=== PATIENT | male | born 1940 | race Caucasian/White ===

== ENCOUNTER 2018-06-19 06:03 | Inpatient (IN) ==
--- NOTE | 2018-06-13 08:28 | EKG Report ---
Test Performed on : 06/13/2018 08:04:15 AM Test Reason : PAT Blood Pressure : / mmHG Vent. Rate : 088 BPM Atrial Rate : 088 BPM P-R Int : 136 ms QRS Dur : 088 ms QT Int : 344 ms P-R-T Axes : 066 -28 059 degrees QTc Int : 416 ms Sinus rhythm. with occasional premature ventricular complexes. Nonspecific ST abnormality Abnormal ECG No previous ECGs available Confirmed by Radha LINDER, Alfredo Alexander ([id number]) on 06/13/2018 8:43:04 AM
[2018-06-13 09:16] LABS: URINE SOURCE CLEAN CATCH
[2018-06-13 09:19] LABS: BASO# 0.05 X1000 (0.0-0.2); BASO% 0.7 % (0.0-0.8); EOS# 0.22 X1000 (0.0-0.7); EOS% 3.1 % (0.0-10.0); HEMATOCRIT 45.5 % (42.0-52.0); HEMOGLOBIN 15.2 g/dL (14.0-18.0); LYMPH# 1.93 X1000 (1.2-3.4); LYMPH% 27.1 % (20.5-51.1); MCH 30.1 PG (27-31); MCHC 33.4 g/dL (33-37); MCV 90.1 FL (81-99); MONO# 0.45 X1000 (0.11-0.59); MONO% 6.3 % (1.7-9.3); MPV 9.3 FL (7.4-10.4); NEUT# 4.48 X1000 (1.4-6.5); NEUT% 62.8 % (42.2-75.2); PLT 309 X1000 (130-400); RBC 5.05 XMIL (4.7-6.1); RDW 13.4 % (11.5-14.5); WBC 7.13 X1000 (4.8-10.8)
[2018-06-13 09:28] LABS: BILIRUBIN URINE NEGATIVE (NEGATIVE); BLOOD URINE NEGATIVE (NEGATIVE); COLOR YELLOW; GLUCOSE URINE NEGATIVE (NEGATIVE); KETONE URINE NEGATIVE (NEGATIVE); LEUKOCYTES URINE NEGATIVE (NEGATIVE); NITRITE URINE NEGATIVE (NEGATIVE); PH URINE 6.5; PROTEIN URINE TRACE mg/dL (NEGATIVE); SP GRAVITY URINE 1.024; TURBIDITY URINE CLEAR (CLEAR); UROBILINOGEN URINE NORMAL (NORMAL)
[2018-06-13 09:31] LABS: INR 0.96; PROTIME 13.5 Seconds (11.0-16.0); UR EPITHELIAL CELLS <10 /HPF (<10); URINE BACTERIA NEGATIVE /HPF; URINE RBC <10 /HPF (<10); URINE WBC <10 /HPF (<10)
[2018-06-13 09:32] LABS: PTT 30.6 Seconds (22.3-41.8)
[2018-06-13 09:57] LABS: AGAP 11; BUN 15 mg/dL (8-22); CALCIUM 9.6 mg/dL (8.8-10.2); CHLORIDE 103 mmol/L (98-107); COSMO 286; CREATININE 1.1 mg/dL (0.7-1.2); ESTIMATED GFR > 60; GLUCOSE 168 mg/dL (70-104); POTASSIUM 4.8 mmol/L (3.5-5.1); SODIUM 141 mmol/L (136-145); TCO2 27 mmol/L (25-35)
[2018-06-19] MEDS ORDERED: PEPCID ONE (06:24)
[2018-06-19] MEDS ORDERED: REGLAN ONE (06:24)
[2018-06-19] MEDS ORDERED: COLACE ONE (06:24)
[2018-06-19] MEDS ORDERED: CELEBREX ONE (06:25)
[2018-06-19] MEDS ORDERED: LYRICA ONE (06:25)
[2018-06-19] MEDS ORDERED: KEFZOL 1 GM/D5W 2 GM/100 ML IVPB ONE (06:25)
[2018-06-19] MEDS ORDERED: LR 1,000 ML ONE (06:25)
[2018-06-19] MEDS ORDERED: DIPRIVAN 1% ONE ×2 (06:59→10:12)
[2018-06-19] MEDS ORDERED: STERILE WATER INJ. ONE (07:04)
[2018-06-19] MEDS ORDERED: NORCURON ONE (07:04)
[2018-06-19] MEDS ORDERED: SUFENTA ONE (07:10)
[2018-06-19] MEDS ORDERED: QUELICIN (DOSE) ONE (07:13)
[2018-06-19] MEDS ORDERED: EXPAREL 1.3% ONE (07:57)
[2018-06-19] MEDS ORDERED: CYKLOKAPRON 1,000 MG/NS 1,000 MG/100 ML IVPB ONE (07:57)
[2018-06-19] MEDS ORDERED: TORADOL ONE (07:57)
[2018-06-19] MEDS ORDERED: SODIUM CHLORIDE 0.9% ONE (07:57)
[2018-06-19] MEDS ORDERED: NEOSPORIN G.U. IRRIGANT ONE (07:57)
[2018-06-19] MEDS ORDERED: DURAMORPH ONE (07:57)
[2018-06-19] MEDS ORDERED: SENSORCAINE-MPF 0.5%/EPI 1:200,000 ONE (07:57)
[2018-06-19] MEDS ORDERED: OFIRMEV 1000 MG/ISOTONIC SOLN 1,000 MG/100 ML BOTTLE ONE (09:43)
[2018-06-19] MEDS ORDERED: NEO-SYNEPHRINE ONE (09:51)
[2018-06-19] MEDS ORDERED: DECADRON ONE (09:52)
[2018-06-19] MEDS ORDERED: ZOFRAN ONE (09:52)
[2018-06-19] MEDS ORDERED: XYLOCAINE-MPF 2% ONE (10:13)
[2018-06-19] MEDS ORDERED: NEOSTIGMINE ONE (10:53)
[2018-06-19] MEDS ORDERED: ROBINUL ONE (10:53)
[2018-06-19] MEDS ORDERED: NS 1,000 ML ONE (11:13)
--- NOTE | 2018-06-19 11:13 | OPERATIVE NOTE ---
PROCEDURE DATE: 06/19/2018 PREOPERATIVE DIAGNOSIS: Degenerative joint disease of the left hip. POSTOPERATIVE DIAGNOSIS: Degenerative joint disease of the left hip. PROCEDURE PERFORMED: Left total hip replacement. SURGEON: Stefan Noble MD. MEAT PULLER: ELDA Neely. Mr. Dean was necessary for proper retraction and manipulation of the leg. ANESTHESIA: General. COMPLICATIONS: None. PROCEDURE IN DETAIL: A 78-year-old male who presents for a left anterior hip replacement. Risks, benefits, and no guarantees were discussed, and he is willing to proceed. He was taken to the operating room and satisfactory anesthesia obtained. The left hip was prepped and draped on the Brigantine table in the usual sterile fashion. A time-out was taken to confirm operative site, procedure, and patient. An anterior approach to the left hip was undertaken with an incision starting 1 cm distal and lateral to the anterior-superior iliac spine and carried distally roughly 12 cm over the fascia zonia. Dissection was carried down to the tensor fascia muscle and the muscle incised in line with the incision. Blunt dissection along the tensor fascia muscle was undertaken down to the anterior hip capsule. Cobra retractors were placed over the superior and inferior aspects of the femoral neck and a capsulotomy incision performed to expose the joint. At this point, an AP pelvis with the C-arm was used to determine appropriate leg lengths. 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 The retractors were placed inside the capsule and a femoral neck osteotomy made using the oscillating saw roughly 8 mm above the lesser trochanter. 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 The acetabulum was exposed and a small Cobra retractor placed carefully directly on the anterior acetabular bone to protect the neurovascular bundle anteriorly. Sequential reaming up to a 54 reamer was undertaken under fluoroscopic guidance with care taken to avoid penetration into the floor of the pelvis. A 56 [employer] [place] [employer] [place] coated cup was then impacted in the acetabulum under fluoroscopic guidance in roughly 45 degrees of abduction and 15 degrees of anteversion. This had secure press-fit fixation. A 25 mm screw was placed in the 12 o'clock position of the cup for additional security and fixation. A 36 mm inner diameter, 0 degree polyethylene liner was impacted into the cup. The liner cup interface and cup bone interface was checked and noted to be stable. This completed the acetabular preparation. Next, the Brigantine table was used to release all traction off the leg and the leg externally rotated and hip extended to facilitate broaching of the proximal femur. Capsular tissue was released about the femoral neck to allow mobilization and leg lengthening slightly for the femoral insertion. Broaching with the [employer] broach was undertaken up to a size 6 stem. This had good axial and rotational stability. Standard neck geometry with a +5 taper revealed good stability as well as some improvement of leg length of up to 1 cm or so. Care was taken to avoid over-lengthening the leg to try and prevent any neurovascular palsy or stretch injury. After achieving good stability with the trial implant, the femoral trial was removed and a size 6 active standard neck geometry stem impacted in the proximal femur with secure axial and rotational stability. A 36 mm, +5 ceramic head was impacted onto this and the hip reduced. C-arm was used to verify accurate hardware placement and fixation of the total hip. Stability was assessed by externally rotating the leg 75 degrees and dropping it, or extending the hip to the floor without any anterior dislocation. The wound was then copiously irrigated with irrigant. A Hemovac drain was placed. The tissue around the joint capsule as well as the skin was injected with Exparel for pain management. He was recovered from anesthesia after closing the wound over the drain with a running V-Loc in the fascia of the tensor, 2-0 Vicryl in the subcutaneous, and skin erica. He was transferred to the recovery room in stable condition. Instrument count and sponge count were correct at the time of closure. No complications were noted. cc: Jorgito Noble MD
[2018-06-19 11:26] LABS: URINE SOURCE CATH
[2018-06-19 11:39] LABS: BILIRUBIN URINE NEGATIVE (NEGATIVE); BLOOD URINE NEGATIVE (NEGATIVE); COLOR YELLOW; GLUCOSE URINE NEGATIVE (NEGATIVE); KETONE URINE 10 mg/dL (NEGATIVE); LEUKOCYTES URINE NEGATIVE (NEGATIVE); NITRITE URINE NEGATIVE (NEGATIVE); PROTEIN URINE TRACE mg/dL (NEGATIVE); SP GRAVITY URINE 1.029; TURBIDITY URINE CLEAR (CLEAR); UROBILINOGEN URINE NORMAL (NORMAL)
[2018-06-19 11:40] LABS: UR EPITHELIAL CELLS <10 /HPF (<10); URINE BACTERIA NEGATIVE /HPF; URINE RBC <10 /HPF (<10); URINE WBC <10 /HPF (<10)
[2018-06-19] MEDS ORDERED: ZOFRAN IV PRN (13:30)
[2018-06-19] MEDS ORDERED: MORPHINE IV PRN ×3 (13:30)
[2018-06-19] MEDS ORDERED: OXY IR PO PRN ×2 (13:30)
[2018-06-19] MEDS ORDERED: ZOFRAN ODT PO PRN (13:30)
[2018-06-19] MEDS ORDERED: ZYRTEC PO PRN (14:53)
[2018-06-19] MEDS ORDERED: FLEXERIL PO PRN (14:53)
[2018-06-19] MEDS ORDERED: CYKLOKAPRON 1,000 MG in NS 100 ML IV ONE (15:00)
--- NOTE | 2018-06-19 15:44 | PROGRESS NOTE ---
DATE: 06/19/2018 SUBJECTIVE: Mr. Rosen is seen status post anterior hip replacement today. OBJECTIVE: Vital signs: At the present time, he is afebrile, resting quietly. Vital signs are all stable. Extremities: His bandage is clean and dry. He has good active flexion and extension of the knee, indicating quadriceps and hamstring function, as well as flexion and extension of the ankle and toes. There is no sign significant swelling or DVT or active bleeding. ASSESSMENT AND PLAN: He is stable the present time. We will plan on mobilizing him and discharging him when he has mobilized on a walker. cc: Jorgito Noble MD
[2018-06-19] MEDS: TYLENOL PO SCH ×2 (16:46→22:05)
[2018-06-19] MEDS: KEFZOL 2 GM/D5W 2 GM/50 ML IVPB IV SCH (16:46)
[2018-06-19] MEDS: ULTRAM PO SCH ×2 (16:46→22:04)
[2018-06-19] MEDS ORDERED: KEFZOL 2 GM/D5W 2 GM/50 ML IVPB IV SCH (17:00)
[2018-06-19] MEDS: CELEBREX PO SCH (20:47)
[2018-06-19] MEDS: PERIDEX MT SCH (20:47)
[2018-06-19] MEDS: COLACE PO SCH (20:47)
[2018-06-19] MEDS: NS 1,000 ML IV SCH (20:48)
[2018-06-19] MEDS ORDERED: FLOMAX PO SCH (21:00)
[2018-06-19] MEDS ORDERED: ZOCOR PO SCH (21:00)
[2018-06-19] MEDS ORDERED: FLONASE NAS SCH (21:00)
[2018-06-20] MEDS: KEFZOL 2 GM/D5W 2 GM/50 ML IVPB IV SCH (01:21)
[2018-06-20] MEDS: NS 1,000 ML IV SCH (03:52)
[2018-06-20] MEDS: TYLENOL PO SCH ×3 (03:58→13:04)
[2018-06-20] MEDS: ULTRAM PO SCH ×3 (03:59→13:04)
[2018-06-20 06:14] LABS: HEMATOCRIT 32.9 % (42.0-52.0); HEMOGLOBIN 10.9 g/dL (14.0-18.0)
[2018-06-20 06:30] LABS: AGAP 9; BUN 20 mg/dL (8-22); CALCIUM 8.3 mg/dL (8.8-10.2); CHLORIDE 105 mmol/L (98-107); COSMO 279; ESTIMATED GFR > 60; GLUCOSE 171 mg/dL (70-104); POTASSIUM 4.4 mmol/L (3.5-5.1); SODIUM 136 mmol/L (136-145); TCO2 22 mmol/L (25-35)
--- NOTE | 2018-06-20 07:32 | PROGRESS NOTE ---
DATE: 06/20/2018 Mr. Rosen was seen status post total hip replacement. He is afebrile with stable vital signs. He is motor and sensory intact with good quad and hamstring, as well as lower extremity function with no neurological deficit. He has good capillary refill with minimal swelling. There are no signs of bleeding or DVT. He can be mobilized today and discharged home today for outpatient followup. I will see him back in roughly 2 weeks. We have set up home therapy. He is to be discharged on his regular medicine including [place] 10 as needed for pain and enteric-coated aspirin for DVT prophylaxis. He is to return in the interim for any worsening signs or symptoms. cc: Jorgito Noble MD
[2018-06-20 08:10] VITALS: BP 105/54
[2018-06-20] MEDS: PERIDEX MT SCH (08:35)
[2018-06-20] MEDS: CELEBREX PO SCH (08:36)
[2018-06-20] MEDS: COLACE PO SCH (08:36)
[2018-06-20] MEDS ORDERED: ASPIRIN PO SCH (09:00)
[2018-06-20] MEDS ORDERED: VASOTEC PO SCH (09:00)
[2018-06-20] MEDS ORDERED: PEPCID PO SCH (09:00)
== END 2018-06-20 15:14 | disposition home health service (06) | DRG 470 ==
LOC: SURHOLD 06:03 → 4N 11:12
PROVIDERS: ADMIT Orthopaedic Surgery Adult Reconstructive Orthopaedic Surgery; ATTEND Orthopaedic Surgery Adult Reconstructive Orthopaedic Surgery
CPT/HCPCS: 76000; 80048; 81001; 85014; 85018; 85025; 85610; 85730; 86850; 86900; 86901; 88304; 88311; 93005; 93010; 94761; 94799; 97110; 97116; 97162; 97165; 97530; 97535; A9270; C9290; J0131; J0330; J0690; J1100; J1885; J2274; J2275; J2370; J2405; J7030; J7120; Q9974